=== PATIENT | male | born 1995 ===

== ENCOUNTER 2022-06-08 15:20 | Emergency (ER) | payer OTHER, SELFPAY ==
[2022-06-08 15:34] VITALS: BP 128/87; PULSE 79; RESP 18; TEMP 37.1; O2SAT 99; BMI 21.6
--- NOTE | 2022-06-08 15:38 | DI.RAD.S_ITS ---
PROCEDURE: XR KNEE LT 3V INDICATIONS: Please evaluate for fracture. TECHNIQUE: 3 views of the knee were acquired. COMPARISON: [facility], CR, XR HAND LT MIN 3V, 06/08/2022, 16:04. FINDINGS: Bones: No fractures or dislocations. No suspicious bony lesions. The knee joint spaces are relatively well preserved. Soft tissues: No joint effusion. No suspicious soft tissue calcifications. IMPRESSION: No acute fracture can be seen on these plain films. If it would be helpful for clinical management decision making, please consider a dedicated, scheduled knee MRI for further evaluation (assuming that there is no contraindication). Dictated by: Robert Solis M.D. on 06/08/2022 at 16:28 Approved by: Robert Solis M.D. on 06/08/2022 at 16:29
--- NOTE | 2022-06-08 15:40 | DI.RAD.S_ITS ---
PROCEDURE: XR WRIST LT MIN 3V INDICATIONS: Please evaluate for fracture TECHNIQUE: 4 views of the wrist were acquired. COMPARISON: [facility], CR, XR KNEE LT 3V, 06/08/2022, 16:04. [facility], CR, XR HAND LT MIN 3V, 06/08/2022, 16:04. FINDINGS: Bones: No fractures or dislocations. No suspicious bony lesions. Scaphoid view: No navicular fractures are seen. Soft tissues: No suspicious soft tissue calcifications. IMPRESSION: No displaced fractures are seen. If there is snuffbox tenderness (or other clinical suspicion for a fracture not seen on these images) then a repeat examination would be recommended in 10 to 14 days, following splinting. Dictated by: Robert Solis M.D. on 06/08/2022 at 16:29 Approved by: Robert Solis M.D. on 06/08/2022 at 16:29
--- NOTE | 2022-06-08 15:41 | DI.RAD.S_ITS ---
PROCEDURE: XR HAND LT MIN 3V INDICATIONS: Please evaluate for fx TECHNIQUE: 3 views of the hand(s) acquired. COMPARISON: [facility], CR, XR KNEE LT 3V, 06/08/2022, 16:04. [facility], CR, XR WRIST LT MIN 3V, 06/08/2022, 16:04. FINDINGS: Bones: No fractures or dislocations. Carpal bones are normally aligned. No suspicious bony lesions. Soft tissues: No suspicious soft tissue calcifications. IMPRESSION: No displaced fractures are seen on these plain films. Dictated by: Robert Solis M.D. on 06/08/2022 at 16:27 Approved by: Robert Solis M.D. on 06/08/2022 at 16:28
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
[2022-06-08] MEDS: TET,DIPH,PERTUSS(ACELL),VAC/PF 0.5 ML SYRINGE IM (18:21)
[2022-06-08] MEDS: KETOROLAC 30 MG/ML VIAL IM (18:21)
[2022-06-08 18:27] VITALS: BP 120/77; PULSE 79; RESP 18; O2SAT 99
--- NOTE | 2022-06-08 18:45 | PC.NURSE ---
Sling applied to elevate L-wrist and wrist brace applied to support L-wrist.
== END 2022-06-08 18:46 | disposition home or self-care (01) ==
PROVIDERS: Emergency Provider Nurse Practitioner Critical Care Medicine
DX: S80.02XA Contusion of left knee, initial encounter (principal); S63.502A Unspecified sprain of left wrist, initial encounter; S63.92XA Sprain of unspecified part of left wrist and hand, initial encounter; T14.8XXA Other injury of unspecified body region, initial encounter; V86.56XA Driver of dirt bike or motor/cross bike injured in nontraffic accident, initial encounter; Z23 Encounter for immunization
CPT/HCPCS: 73110; 73130; 73562; 90471; 96372; 99284; 90715; J1885

== ENCOUNTER 2022-08-07 10:37 | Emergency (ER) | payer OTHER, SELFPAY ==
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
[2022-08-07 10:40] VITALS: BP 120/64; PULSE 78; RESP 15; TEMP 36.4; O2SAT 100; BMI 21.9
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
== END 2022-08-07 11:31 | disposition home or self-care (01) ==
LOC: ED 10:49
PROVIDERS: Emergency Provider Nurse Practitioner Critical Care Medicine
DX: S99.921A Unspecified injury of right foot, initial encounter (principal); X58.XXXA Exposure to other specified factors, initial encounter
CPT/HCPCS: 73610; 73630; 99283